=== PATIENT | male | born 1960 | race Caucasian/White ===

== ENCOUNTER → 2017-01-14 | Outpatient (CLI) | payer OTHER ==
[~2017-01-14] MED LIST: [UNRECOGNIZED DRUG - OTHER] PO
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
== END | disposition home or self-care (01) ==
LOC: C.ULTR 07:33
PROVIDERS: ATTEND Neuromusculoskeletal Medicine & OMM
DX: E27.9 Disorder of adrenal gland, unspecified (principal)

== ENCOUNTER → 2017-01-14 | Outpatient (CLI) | payer OTHER ==
[2017-01-14 12:50] LABS: ALT/SGPT 71 U/L (12-78); AST/SGOT 31 U/L (15-37); BLOOD UREA NITROGEN 20 mg/dl (7-18); BUN/CREATININE RATIO 21.2 (10-20); CALCIUM 8.8 mg/dl (8.5-10.1); CARBON DIOXIDE 27 mmol/L (21-32); CHLORIDE 109 mmol/L (98-107); CREATININE 0.94 mg/dl (0.60-1.40); GLUCOSE 97 mg/dl (70-99); POTASSIUM 3.9 mmol/L (3.5-5.1); SODIUM 142 mmol/L (136-145)
[2017-01-14 12:53] LABS: ALKALINE PHOSPHATASE 65 U/L (45-117); CHOLESTEROL 156 mg/dl (0-200); CHOLESTEROL/HDL RATIO 4.3; HDL CHOLESTEROL 36 mg/dl; LDL CHOLESTEROL CALCULATED 99 mg/dl; TRIGLYCERIDES 103 mg/dl (0-150); VERY LOW DENSITY LIPOPROT CALC 21 mg/dl
== END | disposition home or self-care (01) ==
LOC: C.LABPBG 08:51
PROVIDERS: ATTEND Neuromusculoskeletal Medicine & OMM
DX: Z00.00 Encounter for general adult medical examination without abnormal findings (principal)

== ENCOUNTER → 2017-01-24 | Outpatient (CLI) | payer OTHER ==
--- NOTE | 2017-01-24 10:53 | DIAGNOSTIC IMAGING REPORT ---
BRAIN WITHOUT CONTRAST CLINICAL HISTORY: 56 years-old Male presenting with occasional headache, calcified cranial lesions. TECHNIQUE: Multisequence, multiplanar MR imaging of the brain was performed without the use of intravenous contrast. IV contrast: None. COMPARISON: None. FINDINGS: 1.8 cm extra-axial heterogeneously T2 hyperintense, FLAIR isointense, heterogeneously T1 isointense, diffusion hypointense mass centered at the right Meckel's cave. This is incompletely characterized without intravenous contrast, and the relation to the right internal carotid artery cannot be fully assessed. This is the site of the presumed calcified cranial lesion, although no additional prior exams are available for comparison at this time. The pituitary fossa is separate from this mass. Normal pituitary gland. Mild apparent atrophy of the right anterior venkat. Remaining brain parenchyma normal in appearance. No restricted diffusion to suggest acute ischemia. No midline shift. No hemorrhage or extra-axial fluid collection. Bone marrow signal intensity within the calvarium normal. Minimal polypoid mucosal thickening in the left maxillary sinus. Orbits normal. Upper cervical spine normal. IMPRESSION: 1.8 cm extra-axial mass centered in the right Meckel's cave. This is incompletely evaluated without intravenous contrast, and the relation to the right internal carotid artery cannot be fully assessed. Postcontrast imaging is recommended. 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 Differential considerations include meningioma. Electronically signed by: Manas Morton M.D. 01/24/2017 10:52 AM Dictated Date/Time: 01/24/2017 10:34 AM
== END | disposition home or self-care (01) ==
LOC: C.MRI 09:44
PROVIDERS: ATTEND Neuromusculoskeletal Medicine & OMM
DX: G93.89 Other specified disorders of brain (principal)

== ENCOUNTER → 2017-01-28 | Outpatient (CLI) | payer OTHER ==
[~2017-01-28] MED LIST changes: +GADAVIST IV PRN
--- NOTE | 2017-01-29 13:53 | DIAGNOSTIC IMAGING REPORT ---
ADDENDUM Addendum: Comparison was made to an outside maxillofacial CT performed January 09, 2017. That examination demonstrated ring and arc calcifications within the previously described lesion centered within the right posterior clinoid process on prior MRI. The CT findings suggest a chondrosarcoma. Findings discussed with Dr. Vieira at time of addendum. Electronically signed by: Pito Orozco M.D. 04/15/2017 11:37 AM Dictated Date/Time: 04/15/2017 11:34 AM ORIGINAL REPORT MRI OF THE BRAIN WITH AND WITHOUT CONTRAST TRIGEMINAL PROTOCOL CLINICAL HISTORY: Calcified intracranial lesion. Abnormal previous CT and MRI. COMPARISON STUDY: MRI of the brain January 24, 2017. TECHNIQUE: Utilizing a 1.5 Tammy magnet and dedicated coil, multiplanar, multi echo imaging of the brain was performed pre and postcontrast administration within current imaging through the skull base. Injection of 10 cc of Gadavist IV was uneventful. FINDINGS: There are no areas of restricted diffusion. No acute intracranial hemorrhage is present. Ventricular system is normal. Basilar cisterns are patent. There are no extra-axial collections. Flow-voids for the major intracranial vessels are present. Several scattered white matter T2 hyperintense foci suggest mild small vessel disease. Note is made of a 2.1 x 2 x 1.7 cm T2 hyperintense, T1 hypointense heterogeneously enhancing mass centered within the right posterior clinoid process of the sphenoid bone, located posterior to the right cavernous carotid and immediately superior to the right Meckel's cave. This corresponds to the lesion shown on MRI of January 24, 2017. This has a salt and pepper appearance. This could reflect flow voids. No additional intracranial masses are present. Calvarial signal is normal. IMPRESSION: 2.1 x 2 x 1.7 cm heterogeneous enhancing mass centered within the posterior clinoid process of the right sphenoid bone, immediately posterior to the right cavernous carotid and superior to right Meckel's cave. Possible slight dural extension and minimal extension into Meckel's scan. Apparent bony involvement which could be correlated with prior CT. The appearance is nonspecific. Although this could reflect a meningioma or schwannoma, the appearance is not typical for these lesions. The appearance raises the possibility of a paraganglioma. Neurosurgical consultation is recommended. Electronically signed by: Pito Orozco M.D. 01/29/2017 1:52 PM Dictated Date/Time: 01/28/2017 3:51 PM
== END | disposition home or self-care (01) ==
LOC: C.MRI 13:48
PROVIDERS: ATTEND Neuromusculoskeletal Medicine & OMM
DX: R22.0 Localized swelling, mass and lump, head (principal)

== ENCOUNTER → 2017-06-21 | Outpatient (CLI) | payer OTHER ==
--- NOTE | 2017-06-21 13:30 | DIAGNOSTIC IMAGING REPORT ---
BRAIN COMBO FOR IAC HISTORY: 56 years-old Male G93.89 Calcified intracranial [id number] follow-up study in a patient with a calcified mass of the right sphenoid bone posterior clinoid process COMPARISON: Brain MRI 01/28/2017, CT maxillofacial 01/09/2017 TECHNIQUE: Multiplanar multisequence MRI of the brain utilizing internal auditory canal protocol was obtained both with and without the use of 10.2 mL Gadavist FINDINGS: No restricted diffusion to suggest acute infarction. The midline structures including the corpus callosum, brainstem, optic chiasm, pineal and pituitary glands are unremarkable the sagittal T1 sequence. No cerebellar tonsillar herniation. Mild degenerative changes of the imaged cervical spine. No acute intracranial hemorrhage, midline shift or abnormal extra-axial collections. Scattered areas of T2/FLAIR prolongation are seen within the subcortical and periventricular white matter of the cerebral hemispheres bilaterally suggesting chronic microvascular ischemic changes, unchanged from comparison. The courses of the 7th and 8th cranial nerves are within normal limits. No mass of the cerebellar pontine angle. Lobulated ovoid T1 hypointense and T2 hyperintense lesion of the right sphenoid bone posterior clinoid process is redemonstrated with avid enhancement measuring approximately 2.0 x 2.1 x 1.7 cm nicely seen on image 14 series 10 and image 6 series 12, previously measuring 2.1 x 2.0 x 1.7 cm on study dated 01/28/2017. Again, the inferior margin of this lesion appears to extend into Meckel's cave on the right as seen on image 60 series 8. This mass is posterior to the cavernous portion of the right internal carotid artery. No significant change from comparison. Additional abnormal intra-axial or extra-axial mass lesions are identified. No additional abnormal enhancement. The major flow voids at the level the skull base appear patent. Orbits are symmetric. Mastoid air cells are clear. Mild right and [id number] left maxillary sinus mucosal thickening. Mild ethmoid sinus disease. The scalp, calvarium and soft tissues are unremarkable otherwise. IMPRESSION: 1. Stable size and appearance of the lobulated avidly enhancing mass of the right posterior clinoid process of the sphenoid bone measuring up to 2.0 x 2.1 x 1.7 cm. Again, the inferior portion of this mass appears to extend into Meckel's cave on the right and is immediately posterior to the cavernous portion of the right internal carotid artery. 2. Mild chronic microvascular ischemic changes. 3. Mild paranasal sinus disease. The above report was generated using voice recognition software. It may contain grammatical, syntax or spelling errors. Electronically signed by: Krzysztof Okeefe M.D. 06/21/2017 1:29 PM Dictated Date/Time: 06/21/2017 1:13 PM
--- NOTE | 2017-06-21 13:46 | DIAGNOSTIC IMAGING REPORT ---
CT SCAN OF THE CHEST WITHOUT IV CONTRAST CLINICAL HISTORY: Calcified intracranial lesion. COMPARISON STUDY: Chest CT dated 01/09/2017. TECHNIQUE: CT scan of the thorax was performed from the thoracic inlet to the upper abdomen. Images are reviewed in the axial, sagittal, and coronal planes. IV contrast was not administered for this examination. A dose lowering technique was utilized adhering to the principles of ALARA. CT DOSE: 563.79 mGycm FINDINGS: Thyroid: Imaged portions of the thyroid gland are normal in size and attenuation. Thoracic aorta: The thoracic aorta is normal in caliber and demonstrates standard 3-vessel arch anatomy. Heart: The heart is mildly enlarged and without pericardial effusion. The coronary arteries are densely calcified. Lungs and pleural spaces: No airspace consolidation or pleural effusion is identified. There is a 6 mm focus of pleural-based nodular thickening in the right middle lobe along the minor fissure seen on image #142. A 4 mm left lower lobe pulmonary nodule is seen on image #212. These are unchanged from previous. The trachea and central airways are clear. Mediastinum: There is no mediastinal lymphadenopathy. Gianna: Not well assessed without IV contrast. Axillae: There is no axillary lymphadenopathy. Upper abdomen: The right adrenal lesion seen on 01/09/2017 has resolved and may have represented hemorrhage. A tiny hiatal hernia is noted. Skeletal structures: Mild degenerative change is seen throughout the thoracic spine. A hemangioma is noted in the body of T10. No lytic or blastic bony lesions are seen. Soft tissues: A sebaceous cyst is noted in the right upper back on image #23. IMPRESSION: 1. There is no airspace consolidation or pleural effusion. 2. A 6 mm pleural-based nodule in the right middle lobe and a 4 mm left basilar pulmonary nodule are unchanged from 01/09/2017. These are pathologically indeterminant but of low suspicion and can be followed if clinically warranted. See below. 3. A right adrenal lesion seen on 01/09/2017 has resolved and may have represented hemorrhage. 4. Mild cardiac enlargement. Please refer to below summary of Fleischner criteria recommendations for follow-up of incidental CT nodules (Gualberto Garcia, Guidelines for management of small pulmonary nodules detected on CT scans: A statement from the Fleischner Society, Radiology 237: [id number].) SOLID NODULES Solitary nodule size: <6 mm * low risk patients: no follow-up needed * high risk patients: optional CT at 12 months Solitary nodule size: 6-8 mm * low risk patients: follow-up at 6-12 months, then consider further follow-up at 18-24 months * high risk patients: initial follow-up CT at 6-12 months and then at 18-24 months if no change Solitary nodule size: >8 mm * either low or high risk patients - consider follow-up CT at 3 months, and/or CT-PET, and/or biopsy Multiple nodules size: <6 mm * low risk patients: no routine follow-up * high risk patients: optional CT at 12 months Multiple nodules size: 6-8 mm * low risk patients: follow-up at 3-6 months, then consider further follow-up at 18-24 months * high risk patients: follow-up at 3-6 months, then at 18-24 months if no change Multiple nodules size: >8 mm * low risk patients: follow-up at 3-6 months, then consider further follow-up at 18-24 months * high risk patients: follow-up at 3-6 months, then at 18-24 months if no change Note: newly detected indeterminate nodule in persons 35 years of age or older. * low risk patients: minimal or absent history of smoking and/or other known risk factors * high risk patients: history of smoking or of other known risk factors (e.g. first degree relative with lung cancer, or exposure to asbestos, radon, uranium) * if a nodule up to 8 mm is partly solid or is ground glass further follow-up is required after 24 months to exclude possible slow growing adenocarcinoma (NELLY) SUBSOLID NODULES Solitary pure ground-glass nodule * nodule size <6 mm - no CT follow-up required * nodule size >=6 mm - follow-up CT at 6-12 months, then every 2 years until 5 years Solitary part-solid nodule * nodule size <6 mm - no CT follow-up required * nodule size >=6 mm - follow-up CT at 3-6 months. If unchanged, and solid component remains <6 mm, then annual follow-up for 5 years Multiple subsolid nodules * nodule size <6 mm - follow-up CT at 3-6 months, consider further follow-up at 2 and 4 years if stable * nodule size >=6 mm - follow-up CT at 3-6 months, subsequent management based on the most suspicious nodule(s) Electronically signed by: Giuseppe Lee M.D. 06/21/2017 1:45 PM Dictated Date/Time: 06/21/2017 1:34 PM
== END | disposition home or self-care (01) ==
LOC: C.MRI 11:35
PROVIDERS: ATTEND Neuromusculoskeletal Medicine & OMM
DX: G93.89 Other specified disorders of brain (principal); R91.8 Other nonspecific abnormal finding of lung field